=== PATIENT | female | born 2000 | race Caucasian/White ===

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

== ENCOUNTER 2018-01-08 08:52 | Emergency (ER) | payer BC, OTHER ==
[2018-01-08] MEDS ORDERED: GASTROGRAFIN SOLUTION 30ML (Q9963) As Ordered (09:25)
[2018-01-08] MEDS ORDERED: FAMOTIDINE IV BAG 20 MG in APPROPRIATE DILUENT 1 EA IV (09:30)
[2018-01-08] MEDS: PANTOPRAZOLE 40MG INJ (PROTONIX) (C9113) IV (09:43)
[2018-01-08] MEDS: NS 1,000 ML IV (09:43)
[2018-01-08] MEDS: GI COCKTAIL 50ML BTL(HYOSCYAMINE/MAALOX/LIDOCAINE VISCOUS)(1:3:1) PO (09:43)
[2018-01-08] MEDS: ONDANSETRON 4MG/2ML VIAL (J2405) IV (09:44)
[2018-01-08 09:55] LABS: BASO # 0.1 10^3/uL (0.0-0.2); BASO % 0.6 % (0.0-1.0); EOS # 0.6 10^3/uL (0.0-0.50); EOS % 3.6 % (0.0-3.0); HEMATOCRIT 40.7 % (36.0-47.0); HEMOGLOBIN 13.2 g/dl (12.0-15.5); IMMATURE GRANULOCYTE % 0.6 % (0-3.0); LYMPH # 2.3 10^3/uL (1.5-6.5); LYMPH % 12.8 % (24.0-44.0); MEAN CORPUSCULAR HEMOGLOBIN 27.7 pg (27.0-33.0); MEAN CORPUSCULAR HGB CONC 32.4 g/dl (32.0-36.5); MEAN CORPUSCULAR VOLUME 85.3 fl (80.0-96.0); MONO % 5.6 % (0.0-5.0); NEUTROPHILS # 13.5 10^3/uL (1.8-7.7); NEUTROPHILS % 76.8 % (36.0-66.0); PLATELET COUNT, AUTOMATED 452 10^3/uL (150-450); RED BLOOD COUNT 4.77 10^6/uL (4.00-5.40); RED CELL DISTRIBUTION WIDTH 13.2 % (11.5-14.5); WHITE BLOOD COUNT 17.6 10^3/uL (4.0-10.0)
[2018-01-08 09:58] LABS: KETONE, URINE AUTO RFX NEGATIVE (NEGATIVE); MUCUS, URINE RFX SMALL (NEGATIVE); NITRITE, URINE AUTO RFX NEGATIVE (NEGATIVE); RBC, URINE AUTO RFX 58 /HPF (0-3); SQUAM EPITHELIAL CELL UR AURFX 3 /HPF (0-6)
[2018-01-08 09:59] LABS: LEUKOCYTE ESTERASE UR AUTO RFX TRACE (NEGATIVE); WBC, URINE AUTO RFX 11 /HPF (0-3)
[2018-01-08] MEDS: GASTROGRAFIN SOLUTION 30ML PO ×2 (10:02→10:34)
[2018-01-08 10:13] LABS: CONTROL LINE HCG INT CTR LINE PRESENT; HCG, SERUM QUALITATIVE NEGATIVE (NEGATIVE)
[2018-01-08 10:22] LABS: ALBUMIN 3.5 GM/DL (3.2-5.2); ALBUMIN/GLOBULIN RATIO 0.95 (1.00-1.93); ALKALINE PHOSPHATASE 96 U/L (45-117); ALT/SGPT 30 U/L (12-78); AMYLASE 40 U/L (25-115); ANION GAP 8 MEQ/L (8-16); AST/SGOT 25 U/L (7-37); BILIRUBIN,DIRECT < 0.1 MG/DL (0.0-0.2); BILIRUBIN,TOTAL 0.3 MG/DL (0.2-1.0); BLOOD UREA NITROGEN 13 MG/DL (7-18); CALCIUM LEVEL 8.7 MG/DL (8.5-10.1); CARBON DIOXIDE LEVEL 24 MEQ/L (21-32); CHLORIDE LEVEL 111 MEQ/L (98-107); CREATININE FOR GFR 0.77 MG/DL (0.55-1.30); GLUCOSE, FASTING 97 MG/DL (70-100); LIPASE 129 U/L (73-393); POTASSIUM SERUM 4.2 MEQ/L (3.5-5.1); SODIUM LEVEL 143 MEQ/L (136-145); TOTAL PROTEIN 7.2 GM/DL (6.4-8.2)
[2018-01-08] MEDS ORDERED: ISOVUE-370 76% 100ML VIAL (Q9967) As Ordered (11:09)
== END 2018-01-08 12:40 | disposition home or self-care (01) ==
LOC: M ED 08:52
DX: K80.50 Calculus of bile duct without cholangitis or cholecystitis without obstruction (principal); N83.299 Other ovarian cyst, unspecified side; R10.9 Unspecified abdominal pain; R11.2 Nausea with vomiting, unspecified; J45.909 Unspecified asthma, uncomplicated; Z79.899 Other long term (current) drug therapy; Z88.2 Allergy status to sulfonamides
CPT/HCPCS: C9113

== ENCOUNTER → 2018-07-17 | Outpatient (REF) | payer OTHER | LOC: M LAB REF 16:39 | DX: J02.9 Acute pharyngitis, unspecified (principal) ==

== ENCOUNTER 2019-06-12 12:53 | Emergency (ER) | payer OTHER ==
[~2019-06-12] VITALS: Ht 160 cm; Wt 98.1 kg
[~2019-06-12 12:53] MED LIST: CARA1TAB6 PO; COLA100C5 PO; IBUP-1114 PO; MAPA500T2 PO; PROAAER10 INH; PROT1TAB2 PO; ZOFR4TAB14 PO
[2019-06-12 14:04] LABS: BASO # 0.1 10^3/uL (0.0-0.2); BASO % 0.7 % (0.0-1.0); EOS # 0.2 10^3/uL (0.0-0.5); EOS % 2.3 % (0.0-3.0); HEMATOCRIT 43.2 % (36.0-47.0); HEMOGLOBIN 14.1 g/dl (12.0-15.5); LYMPH # 2.5 10^3/uL (1.5-5.0); MEAN CORPUSCULAR HEMOGLOBIN 29.4 pg (27.0-33.0); MEAN CORPUSCULAR HGB CONC 32.6 g/dl (32.0-36.5); MEAN CORPUSCULAR VOLUME 90.2 fl (80.0-96.0); MONO # 0.8 10^3/uL (0.0-0.8); MONO % 7.6 % (0.0-5.0); NEUTROPHILS # 7.1 10^3/uL (1.5-8.5); NEUTROPHILS % 66.1 % (36.0-66.0); PLATELET COUNT, AUTOMATED 320 10^3/uL (150-450); RED BLOOD COUNT 4.79 10^6/uL (4.00-5.40); WHITE BLOOD COUNT 10.7 10^3/uL (4.0-10.0)
[2019-06-12 15:14] LABS: BLOOD UREA NITROGEN 10 MG/DL (7-18); CALCIUM LEVEL 8.8 MG/DL (8.5-10.1); CARBON DIOXIDE LEVEL 26 MEQ/L (21-32); CHLORIDE LEVEL 107 MEQ/L (98-107); CREATININE FOR GFR 0.62 MG/DL (0.55-1.30); GLUCOSE, FASTING 79 MG/DL (70-100); HCG, SERUM QUANTITATIVE 4098 MIU/ML; SODIUM LEVEL 140 MEQ/L (136-145)
--- NOTE | 2019-06-12 17:11 | REP ---
FIRST TRIMESTER ULTRASOUND: Real-time sonographic evaluation of the pelvis performed utilizing transabdominal and endovaginal technique. Uterine length is 10.3 cm. A gestational sac is seen in the endometrial canal containing a pole with a crown rump length of 12 mm. This would correspond to an estimated gestational age of 7 weeks 3 days. However, no heart motion is detected. Findings are compatible with intrauterine demise. There is no subchorionic hemorrhage. A cyst of the right ovary measures 4.1 x 2.3 x 3.1 cm, anechoic. This may represent a corpus luteum. No torsion is seen with duplex Doppler evaluation bilaterally. Electronically Signed by Honorio Morgan MD 06/15/2019 04:29 P
[2019-06-12 19:39] VITALS: BP 140/64
== END 2019-06-12 19:46 | disposition home or self-care (01) ==
LOC: M ED 12:53
DX: O03.4 Incomplete spontaneous abortion without complication (principal); Z3A.01 Less than 8 weeks gestation of pregnancy; Z88.2 Allergy status to sulfonamides; Z79.899 Other long term (current) drug therapy

== ENCOUNTER → 2019-06-18 | Outpatient (CLI) | payer OTHER | LOC: M SMT 10:21 | PROVIDERS: ATTEND Advanced Practice Midwife | DX: O03.9 Complete or unspecified spontaneous abortion without complication (principal) ==

== ENCOUNTER → 2019-06-23 | Outpatient (CLI) | payer OTHER | LOC: M SMT 10:29 | PROVIDERS: ATTEND Advanced Practice Midwife | DX: O03.9 Complete or unspecified spontaneous abortion without complication (principal) ==

== ENCOUNTER → 2020-05-04 | Outpatient (CLI) | payer BC ==
--- NOTE | 2020-06-14 09:31 | REP ---
OBSTETRIC SONOGRAPHY HISTORY: Supervision of for anatomy. FINDINGS: Scanning through the gravid uterus demonstrates a single living intrauterine gestation in a predominantly breech lie. Placenta is anterior grade 1 without evidence of previa or abruption. There is a right-sided ovarian cyst measuring 3.4 x 3.4 x 2.1 cm consistent with corpus luteum cyst. Exam quality was inhibited by maternal body habitus and early gestational age. heart rate recorded at 149 beats per minute. Amniotic fluid is subjectively normal. The following anatomic structures are identified and felt to be unremarkable: Cisterna magna, cavum septum, thalami, spine, left-sided stomach, urinary bladder, three-vessel cord, abdominal wall cord insertion, upper and lower extremities. The facial profile is seen, but nose and lips are not clearly visualized due to position. Kidneys were not well seen. BIOMETRY CHART: BPD 34 mm 16 weeks 4 days Head Circumference 145 mm 17 weeks 6 days Abdominal Circumference 130 mm 18 weeks 4 days Femur Length 27 mm 18 weeks 2 days Humeral Length 28 mm 19 weeks 0 days Estimated Weight 231 g 28th Percentile IMPRESSION: Single living intrauterine gestation at 17 weeks 6 days by todays composite criteria. Estimated date of delivery (MATTY) by todays sonography 10/06/2020. Scan quality inhibited by maternal body habitus and early gestational age. anatomic survey is not complete. MTDD
== END ==
LOC: M WHC 13:02
PROVIDERS: ATTEND Advanced Practice Midwife
DX: Z34.82 Encounter for supervision of other normal pregnancy, second trimester (principal); Z3A.17 17 weeks gestation of pregnancy

== ENCOUNTER → 2020-07-06 | Outpatient (CLI) | payer BC ==
--- NOTE | 2020-07-07 13:17 | REP ---
INDICATION: F/U ANATOMY COMPARISON: 05/04/2020 TECHNIQUE: Transabdominal obstetrical ultrasound with color Doppler evaluation. FINDINGS: Examination demonstrates a single live intrauterine in breech presentation. motion is identified by technologist. Placenta is noted anterior and grade 1 without evidence for placenta previa or abruption. Amniotic fluid volume is normal. Cervix measures 3.9 cm in length and appears closed.. Gestational age by current measurements 27 weeks 0 days with MATTY 10/05/2020. FHR equals 152 beats per minute. Estimated weight 1086 grams (35thpercentile). Anatomical assessment demonstrates normal structures including facial features, four-chamber heart/ventricular outflow tracts, kidneys, and spine. IMPRESSION: Single live intrauterine in breech presentation demonstrating appropriate estimated weight and growth. In conjunction with prior examination anatomical assessment is complete and normal. <Electronically signed by Jona Robert > 07/07/20 [id number]
== END ==
LOC: M WHC 13:31
PROVIDERS: ATTEND Advanced Practice Midwife
DX: O99.212 Obesity complicating pregnancy, second trimester (principal)

== ENCOUNTER → 2020-07-12 | Outpatient (REF) | payer OTHER ==
[2020-07-12 14:05] LABS: HEMATOCRIT 39.5 % (36.0-47.0); HEMOGLOBIN 12.5 g/dl (12.0-15.5); MEAN CORPUSCULAR HEMOGLOBIN 29.3 pg (27.0-33.0); MEAN CORPUSCULAR HGB CONC 31.6 g/dl (32.0-36.5); MEAN CORPUSCULAR VOLUME 92.5 fl (80.0-96.0); PLATELET COUNT, AUTOMATED 291 10^3/uL (150-450); RED BLOOD COUNT 4.27 10^6/uL (4.00-5.40); WHITE BLOOD COUNT 9.9 10^3/uL (4.0-10.0)
== END ==
LOC: M PLALAB 11:28
PROVIDERS: ATTEND Advanced Practice Midwife
DX: O99.212 Obesity complicating pregnancy, second trimester (principal)

== ENCOUNTER → 2020-09-05 | Outpatient (REF) | payer OTHER | LOC: M LAB REF 13:14 | PROVIDERS: ATTEND Obstetrics & Gynecology | DX: Z36.89 Encounter for other specified antenatal screening (principal); Z3A.36 36 weeks gestation of pregnancy ==

== ENCOUNTER 2020-10-04 07:16 | Inpatient (IN) | payer BC, OTHER ==
[~2020-10-04] VITALS: Ht 157.5 cm; Wt 120.9 kg
[2020-10-04] VITALS (23 sets, daily range): BP systolic 95–130; BP diastolic 43–74
--- OUTSIDE RECORDS SUMMARY | 2020-10-04 07:30 | CCD ---
Author Author [facility] Organization [facility] Address Unknown Phone Unavailable Care Team Providers Care Agriculture Department Chair Name Role Phone Debora Trujillo Unavailable PROBLEMS Type Condition ICD9-CM Code [id number] Code Onset Dates Condition S tatus SNOMED Code Notes Problem Obesity, morbid, BMI 40.0-49.9 E66.01 Active 2 58934897 Problem Encounter for control pills maintenance Z30. 41 Active 887939290 Problem Environmental allergies Z91.09 Active 04996165 7 Problem Obesity (BMI 35.0-39.9 without comorbidity) E66.9 Active 350195096 Problem Encounter for management and injection of depo-Provera Z30.42 Active 346708536 Problem Obesity complicating in third trimester O99.21 3 Active Problem control Z30.9 Active 63306020 Problem Asthma J45.909 Active 229485399 Problem Supervision of other normal Z34.80 Ac tive 656582655 Problem Obesity complicating in first trimester O99.21 1 Active Problem Obesity complicating in second trimester O99.212 Active 576305544494 ALLERGIES Allergen (clinical drug ingredient) Drug/Non Drug Allergy do cumented on EMR Reaction Allergy Type Onset Date Status Sulfa (for allergy use only) Hives Drug Allergy Active ENCOUNTERS from 1998 to 2020-07-26 Encounter Location Date Provider Diagnosis [facility] [address] [place] [address] Mar, Debora Trujillo Obesity complicating , first trimester O99.211 ; Morbid (severe) obesity due to excess calories E66.01 ; Diseases of the respiratory system complicating , first trimester O99.511 ; Unspecified asthma, uncomplicated J45.909 and 13 weeks gestation of Z3A.13 IMMUNIZATIONS Vaccine Route Administration Date Status HPV9 0.5mL (Gardasil 9) IM Intramuscular December 01, 2015 Adminis tered Gardasil IM Intramuscular May 24, 2015 Administered TDAP 0.5mL (Boostrix) IM Intramuscular Jul 21, 2020 Administe red Influenza (6mo & up) Fluzone IM Intramuscular Jun 02, 2014 Ad ministered Influenza (6mo & up) Fluzone IM Jun 24, 2013 Adm inistered SOCIAL HISTORY Sex Assigned At : Social History Observation Description Sex Assigned At Unknown Language: Question Answer Notes Languages spoken: Sami Cheondoism: Question Answer Notes Cheondoism 33 None REASON FOR REFERRAL No Information VITAL SIGNS Weight 222 lbs Mar, Height 62.75 in Mar, BMI 39.64 kg/m2 Mar, Blood pressure systolic 124 mm Hg Mar, Blood pressure diastolic 68 mm Hg Mar, MEDICATIONS Medication SIG (Take, Route, Frequency, Duration) Start Date En d Date Status Albuterol Sulfate (2.5 MG/3ML) 0.083% 3 ml Inhalation qid prn fo r sob/wheeze Not-Taking Zofran 4 MG 1 tablet Orally every 6 hours as needed for nausea Jun, Active Albuterol Sulfate HFA 108 (90 Base) MCG/ACT 1-2 puffs Inhalation qid prn for sob/wheeze for 30 day(s) Not-Taking Vitamins 28-0.8 MG 1 tablet Orally Once a day Active PROCEDURES No Information RESULTS No Results REASON FOR VISIT 4WK PN MEDICAL (GENERAL) HISTORY Type Description Date Medical History Asthma Hospitalization History Asthma As infant Hospitalization History childbirth Goals Section No Information Health Concerns No Information MEDICAL EQUIPMENT No Information MENTAL STATUS No Information FUNCTIONAL STATUS No Information ASSESSMENTS Encounter Date Diagnosis Notes Mar, Diseases of the respiratory system complicating , first trimester (ICD-10 - O99.511) Mar, Morbid (severe) obesity due to excess ca lories (ICD-10 - E66.01) Mar, 13 weeks gestation of (ICD-10 - Z3A.13) Mar, Unspecified asthma, uncomplicated (ICD-1 0 - J45.909) Mar, Obesity complicating , first tr imester (ICD-10 - O99.211) PLAN OF TREATMENT Next Appt Details 4 Weeks Reason: Provider Name:Debora Trujillo, 2020 0 2:40:00 PM, [address] [place], [address], Insurance Providers Payer Name Payer Address Payer Phone Insured Name Patient Relati onship to Insured Coverage Start Date Coverage End Date [facility] [address] [facility] [id number] [place] [id number]
--- OUTSIDE RECORDS SUMMARY | 2020-10-04 07:30 | CCD ---
Author Author [facility] Organization [facility] Address Unknown Phone Unavailable Care Team Providers Care Fryline Attendant Name Role Phone Grant Coreas Unavailable PROBLEMS Type Condition ICD9-CM Code CJX11-IP Code Onset Dates Condition S tatus SNOMED Code Notes Problem Asthma J45.909 Active 333946467 Problem Morbid (severe) obesity due to excess calories E66 .01 Active 388769594 Problem Obesity, morbid, BMI 40.0-49.9 E66.01 Active 2 13294974 Problem Encounter for control pills maintenance Z30. 41 Active 673091455 Problem Environmental allergies Z91.09 Active 61067803 7 ALLERGIES Allergen (clinical drug ingredient) Drug/Non Drug Allergy do cumented on EMR Reaction Allergy Type Onset Date Status Sulfa (for allergy use only) Hives Drug Allergy Active ENCOUNTERS from 1998 to 2020-08-31 Encounter Location Date Provider Diagnosis [facility] [address] [place] [address] Aug, Grant Coreas IMMUNIZATIONS Vaccine Route Administration Date Status HPV9 0.5mL (Gardasil 9) IM Intramuscular December 01, 2015 Adminis tered Gardasil IM Intramuscular May 24, 2015 Administered TDAP 0.5mL (Boostrix) IM Intramuscular Jul 21, 2020 Administe red Influenza (6mo & up) Fluzone IM Intramuscular 2020 Ad ministered Influenza (6mo & up) Fluzone IM Intramuscular Jun 02, 2014 Ad ministered Influenza (6mo & up) Fluzone IM Jun 24, 2013 Adm inistered SOCIAL HISTORY Sex Assigned At : Social History Observation Description Sex Assigned At Unknown Language: Question Answer Notes Languages spoken: Syriac Hoahaoism: Question Answer Notes Hoahaoism 33 None REASON FOR REFERRAL No Information VITAL SIGNS No information MEDICATIONS Medication SIG (Take, Route, Frequency, Duration) Notes Start Da te End Date Status Albuterol Sulfate (2.5 MG/3ML) 0.083% 3 ml Inhalation qid prn fo r sob/wheeze Not-Taking Zofran 4 MG 1 tablet Orally every 6 hours as needed for nausea Jun, Active Albuterol Sulfate HFA 108 (90 Base) MCG/ACT 1-2 puffs Inhalation qid prn for sob/wheeze for 30 day(s) Not-Wil ing Vitamins 28-0.8 MG 1 tablet Orally Once a day Active PROCEDURES No Information RESULTS No Results REASON FOR VISIT blurry vision MEDICAL (GENERAL) HISTORY Type Description Date Medical History Asthma Hospitalization History Asthma As infant Hospitalization History childbirth Goals Section No Information Health Concerns No Information MEDICAL EQUIPMENT No Information MENTAL STATUS No Information FUNCTIONAL STATUS No Information ASSESSMENTS No Information PLAN OF TREATMENT Next Appt Details Provider Name:Grant Coreas, 09:20:00 AM, [address] [place], [address], Insurance Providers Payer Name Payer Address Payer Phone Insured Name Patient Relati onship to Insured Coverage Start Date Coverage End Date [facility] [address] [facility] [id number] [place] [id number]
--- OUTSIDE RECORDS SUMMARY | 2020-10-04 07:30 | CCD ---
Author Author [facility] Organization [facility] Address Unknown Phone Unavailable Care Team Providers Care Sales Administration Manager Name Role Phone Margot Ramsay Unavailable PROBLEMS Type Condition ICD9-CM Code XEC69-MM Code Onset Dates Condition S tatus SNOMED Code Notes Problem Obesity, morbid, BMI 40.0-49.9 E66.01 Active 2 10683062 Problem Encounter for control pills maintenance Z30. 41 Active 132327762 Problem Environmental allergies Z91.09 Active 17090856 7 Problem Obesity (BMI 35.0-39.9 without comorbidity) E66.9 Active 245972164 Problem Encounter for management and injection of depo-Provera Z30.42 Active 201871957 Problem Obesity complicating in third trimester O99.21 3 Active Problem control Z30.9 Active 91472051 Problem Asthma J45.909 Active 319434126 Problem Supervision of other normal Z34.80 Ac tive 378985444 Problem Obesity complicating in first trimester O99.21 1 Active Problem Obesity complicating in second trimester O99.212 Active 882274455082 ALLERGIES Allergen (clinical drug ingredient) Drug/Non Drug Allergy do cumented on EMR Reaction Allergy Type Onset Date Status Sulfa (for allergy use only) Hives Drug Allergy Active ENCOUNTERS from 1998 to 2020-08-04 Encounter Location Date Provider Diagnosis [facility] [address] [place] [phone] Jul, Margot Ramsay Encounter for imm unization Z23 ; Obesity complicating in third trimester O99.213 and 29 weeks gestation of Z3A.29 IMMUNIZATIONS Vaccine Route Administration Date Status HPV9 [...] Unknown Language: Question Answer Notes Languages spoken: Faroese Hindu: Question Answer Notes Hindu 33 None REASON FOR REFERRAL No Information VITAL SIGNS Weight 223.8 lbs Jul, Weight-kg 101.51 kg Jul, Height 62.75 in Jul, BMI 39.961 kg/m2 Jul, Blood pressure systolic 112 mm Hg Jul, Blood pressure diastolic 58 mm Hg Jul, MEDICATIONS Medication SIG (Take, Route, Frequency, Duration) [...] tablet Orally Once a day Active PROCEDURES Procedure Date Ordered Result Body Site Immunization: Boostrix 0.5mL IM (TDAP) 2020-07-21 N/A RESULTS No Results REASON FOR VISIT 4 WEEK PN MEDICAL (GENERAL) HISTORY Type Description Date Medical History Asthma Hospitalization History Asthma As infant Hospitalization History childbirth Goals Section No Information Health Concerns No Information MEDICAL EQUIPMENT No Information MENTAL STATUS No Information FUNCTIONAL STATUS No Information ASSESSMENTS Encounter Date Diagnosis Assessment Notes Treatment Notes Treatm ent Clinical Notes Jul, Encounter for immunization (ICD-10 - Z23) Jul, Obesity complicating pregnan cy in third trimester (ICD-10 - O99.213) Jul, 29 weeks gestation of (ICD-10 - Z3A.29 ) PLAN OF TREATMENT Next Appt Details 2 Weeks Reason:return ob Provider Name:Debora Trujillo, 2020 0 2:40:00 PM, [address] [place], [address], Follow Up:2 Weeksreturn ob Insurance Providers Payer Name Payer Address Payer Phone Insured Name Patient Relati onship to Insured Coverage Start Date Coverage End Date [facility] [address] [facility] [id number] [place] [id number]
--- OUTSIDE RECORDS SUMMARY | 2020-10-04 07:30 | CCD ---
Author Author [facility] Organization [facility] Address Unknown Phone Unavailable Care Team Providers Care Antenna Specialist Name Role Phone Felipa Webb Unavailable PROBLEMS Type Condition ICD9-CM Code GFA00-IU Code Onset Dates Condition S tatus SNOMED Code Notes Problem Encounter for management and injection of depo-Provera Z30.42 Active 797552086 Problem Obesity, morbid, BMI 40.0-49.9 E66.01 Active 2 85965847 Problem Encounter for control pills maintenance Z30. 41 Active 120791697 Problem Obesity complicating in second trimester O99.212 Active 668926612255 Problem control Z30.9 Active 46411959 Problem Obesity (BMI 35.0-39.9 without comorbidity) E66.9 Active 170814881 Problem Environmental allergies Z91.09 Active 08856655 7 Problem Asthma J45.909 Active 741031063 Problem Supervision of other normal Z34.80 Ac tive 185782920 Problem Obesity complicating in first trimester O99.21 1 Active ALLERGIES Allergen (clinical drug ingredient) Drug/Non Drug Allergy do cumented on EMR Reaction Allergy Type Onset Date Status Sulfa (for allergy use only) Hives Drug Allergy Active ENCOUNTERS from 1998 to 2020-07-20 Encounter Location Date Provider Diagnosis [facility] [address] [place] [address] 08 Jun, 2020 Felipa Webb Obesity complicating in second trimester O99.212 ; 25 weeks gestation of Z3A.25 and Obesity (BMI 35.0-39.9 without comorbidity) E66.9 IMMUNIZATIONS Vaccine Route Administration Date Status HPV9 0.5mL (Gardasil 9) IM Intramuscular December 01, 2015 Adminis tered Gardasil IM Intramuscular May 24, 2015 Administered Influenza (6mo & up) Fluzone IM Intramuscular Jun 02, 2014 Ad ministered Influenza (6mo & up) Fluzone IM Jun 24, 2013 Adm inistered SOCIAL HISTORY Sex Assigned At : Social History Observation Description Sex Assigned At Unknown Language: Question Answer Notes Languages spoken: Austrian Roman Catholic: Question Answer Notes Roman Catholic 33 None REASON FOR REFERRAL No Information VITAL SIGNS Weight 219 lbs Jun, Height 62.75 in Jun, BMI 39.104 kg/m2 Jun, Blood pressure systolic 122 mm Hg Jun, Blood pressure diastolic 72 mm Hg Jun, MEDICATIONS Medication SIG (Take, Route, Frequency, Duration) Start Date En d Date Status Albuterol Sulfate (2.5 MG/3ML) 0.083% 3 ml Inhalation qid prn fo r sob/wheeze Not-Taking Albuterol Sulfate HFA 108 (90 Base) MCG/ACT 1-2 puffs Inhalation qid prn for sob/wheeze for 30 day(s) Not-Taking Zofran 4 MG 1 tablet Orally every 6 hours as needed for nausea Jun, Active Vitamins 28-0.8 MG 1 tablet Orally Once a day Active PROCEDURES No Information RESULTS Component Value Reference Range [facility] OBS FOLLOW UP OR REPEAT Reviewed date:07/10/2020 14:05:29 Interpretation: Performing Lab:[facility] [address] ,[place] [address] Type and Screen (D Rh Antibody Screen) Reviewed date:07/12/2020 18:32:16 Interpretation: Performing Lab:[facility] LABORATORY [address] [place] [address] , ,[place] [address] BLOOD TYPE O POSITIVE AB SCREEN (INDIRECT ZENAIDA)VIS NEGATIVE CBC - Complete Blood Count Reviewed date:07/12/2020 18:32:10 Interpretation: Performing Lab:[facility] LABORATORY [address] [place] [address] , ,[place] [address] WHITE BLOOD COUNT 9.9 4.0-10.0 RED BLOOD COUNT 4.27 4.00-5.40 HEMOGLOBIN 12.5 12.0-15.5 HEMATOCRIT 39.5 36.0-47.0 MEAN CORPUSCULAR VOLUME 92.5 80.0-96.0 MEAN CORPUSCULAR HEMOGLOBIN 29.3 27.0-33.0 MEAN CORPUSCULAR HGB CONC 31.6 32.0-36.5 RED CELL DISTRIBUTION WIDTH 12.6 11.5-14.5 PLATELET COUNT, AUTOMATED 291 150-450 Glucose Challenge Test 1 Hour Reviewed date:07/12/2020 18:32:38 Interpretation: Performing Lab:[facility], [facility] LAB[facility]ORY [address] [facility] [id number] , ,[place] [address] GLUCOSE CHALLENGE TEST 1 HOUR 76 LESS THAN 140 REASON FOR VISIT 4 WK PN MEDICAL (GENERAL) HISTORY Type Description Date Medical History Asthma Hospitalization History Asthma As Hospitalization History childbirth Goals Section No Information Health Concerns No Information MEDICAL EQUIPMENT No Information MENTAL STATUS No Information FUNCTIONAL STATUS No Information ASSESSMENTS Encounter Date Diagnosis Notes Jun, Obesity (BMI 35.0-39.9 without comorbidi ty) (ICD-10 - E66.9) Jun, 25 weeks gestation of (ICD-10 - Z3A.25) Jun, Obesity complicating pregnan cy in second trimester (ICD-10 - O99.212) PLAN OF TREATMENT Medication Medication Name Sig Start Date Stop Date Zofran 4 MG 1 tablet Orally every 6 hours as needed for naus ea Jun, Next Appt Details 4 Weeks Reason: Provider Name:Margot Leon, 2020-07-21 11:00:00 AM, [address] [place], [address], Follow Up:4 Weeksprenatal Insurance Providers Payer Name Payer Address Payer Phone Insured Name Patient Relati onship to Insured Coverage Start Date Coverage End Date [facility] [address] [facility] [id number] [place] [id number]
--- OUTSIDE RECORDS SUMMARY | 2020-10-04 07:30 | CCD ---
Author Author [facility] Organization [facility] Address Unknown Phone Unavailable Care Team Providers Care Chestnut Tanner Name Role Phone Grant Coreas Unavailable PROBLEMS Type Condition ICD9-CM Code QPH27-MR Code Onset Dates Condition S tatus SNOMED Code Notes Problem Asthma J45.909 Active 243054381 Problem Morbid (severe) obesity due to excess calories E66 .01 Active 680409140 Problem Obesity, morbid, BMI 40.0-49.9 E66.01 Active 2 55971938 Problem Encounter for control pills maintenance Z30. 41 Active 875337293 Problem Environmental allergies Z91.09 Active 94157844 7 ALLERGIES Allergen (clinical drug ingredient) Drug/Non Drug Allergy do cumented on EMR Reaction Allergy Type Onset Date Status Sulfa (for allergy use only) Hives Drug Allergy Active ENCOUNTERS from 1998 to 2020-08-31 Encounter Location Date Provider Diagnosis [facility] [address] [place] [id number] Aug, Grant Coreas related co nditions, unspecified, unspecified trimester O26.90 IMMUNIZATIONS Vaccine Route Administration Date Status HPV9 [...] Unknown Language: Question Answer Notes Languages spoken: Cymro Islam: Question Answer Notes Islam 33 None REASON FOR REFERRAL No Information [...] Information RESULTS No Results REASON FOR VISIT BP CHECK MEDICAL (GENERAL) HISTORY Type Description Date Medical History Asthma Hospitalization History Asthma As Hospitalization History childbirth Goals Section No Information Health Concerns No Information MEDICAL EQUIPMENT No Information MENTAL STATUS No Information FUNCTIONAL STATUS No Information ASSESSMENTS Encounter Date Diagnosis Assessment Notes Treatment Notes Treatm ent Clinical Notes Aug, related conditions , unspecified, unspecified trimester (ICD-10 - O26.90) PLAN OF TREATMENT Next Appt Details Provider Name:Grant Coreas, 09:20:00 AM, [address] [place], [address], Insurance Providers Payer Name Payer Address Payer Phone Insured Name Patient Relati onship to Insured Coverage Start Date Coverage End Date [facility] [address] [facility] [id number] [place] [id number]
--- OUTSIDE RECORDS SUMMARY | 2020-10-04 07:30 | CCD ---
Author Author [facility] Organization [facility] Address Unknown Phone Unavailable Care Team Providers Care Appliances Sample Maker Name Role Phone Grant Coreas Unavailable PROBLEMS Type Condition ICD9-CM Code XIQ45-NR Code Onset Dates Condition S tatus SNOMED Code Notes Problem Morbid (severe) obesity due to excess calories E66 .01 Active 942937316 Problem Obesity during third trimester, antepartum O99.213 Active 814694658 Problem Obesity, morbid, BMI 40.0-49.9 E66.01 Active 2 53695440 Problem Encounter for control pills maintenance Z30. 41 Active 991889481 Problem Environmental allergies Z91.09 Active 78151043 7 Problem Asthma J45.909 Active 224109570 ALLERGIES Allergen (clinical drug ingredient) Drug/Non Drug Allergy do cumented on EMR Reaction Allergy Type Onset Date Status Sulfa (for allergy use only) Hives Drug Allergy Active ENCOUNTERS from 1998 to 2020-09-07 Encounter Location Date Provider Diagnosis [facility] [address] [place] [phone] Aug, Grant Coreas Obesity during third trimester, antepartum O99.213 ; Body mass index of 60 or higher E66.01 and 36 weeks gestation of Z3A.36 IMMUNIZATIONS Vaccine Route Administration Date Status HPV9 [...] Unknown Language: Question Answer Notes Languages spoken: Vietnamese Latter-Day: Question Answer Notes Latter-Day 33 None REASON FOR REFERRAL No Information VITAL SIGNS Weight 226 lbs Aug, Height 62.75 in Aug, BMI 40.35 kg/m2 Aug, Blood pressure systolic 118 mm Hg Aug, Blood pressure diastolic 58 mm Hg Aug, MEDICATIONS Medication SIG (Take, Route, Frequency, Duration) Notes Start Da te End Date Status Zofran 4 MG 1 tablet Orally every 6 hours as needed for nausea Jun, Active Albuterol Sulfate (2.5 MG/3ML) 0.083% 3 ml Inhalation qid prn fo r sob/wheeze Not-Taking Vitamins 28-0.8 MG 1 tablet Orally Once a day Active Albuterol Sulfate HFA 108 (90 Base) MCG/ACT 1-2 puffs Inhalation qid prn for sob/wheeze for 30 day(s) Not-Wil ing PROCEDURES No Information RESULTS No Results REASON FOR VISIT 2 WK PN MEDICAL (GENERAL) HISTORY Type Description Date Medical History Asthma Hospitalization History Asthma As infant Hospitalization History childbirth Goals Section No Information Health Concerns No Information MEDICAL EQUIPMENT No Information MENTAL STATUS No Information FUNCTIONAL STATUS No Information ASSESSMENTS Encounter Date Diagnosis Assessment Notes Treatment Notes Treatm ent Clinical Notes Aug, Obesity during third trimester, antepartum (ICD- 10 - O99.213) Aug, Body mass index of 60 or higher (ICD-10 - E66.01 ) Aug, 36 weeks gestation of (ICD-10 - Z3A.36 ) PLAN OF TREATMENT Treatment Notes Test Name Order Date GROUP B STREP CULTURE 2020-09-07 Next Appt Details 1 Week Reason:follow-up Provider Name:Margot Ramsay, 2020-09-22 01:40:00 PM, [address] [place], [phone], Follow Up:1 Weekfollow-up Insurance Providers Payer Name Payer Address Payer Phone Insured Name Patient Relati onship to Insured Coverage Start Date Coverage End Date [facility] [address] [facility] [id number] [place] [id number]
--- OUTSIDE RECORDS SUMMARY | 2020-10-04 07:30 | CCD ---
Author Author [facility] Organization [facility] Address Unknown Phone Unavailable Care Team Providers Care Continuous Pillowcase Cutter Name Role Phone Marisol Saundersina SEASONER Unavailable Unavailable Saunders, Xin SEASONER Unavailable Unavailable Saunders, Xin SEASONER Unavailable Unavailable Saunders, Xin SEASONER Unavailable Unavailable Saunders, Xin SEASONER Unavailable Unavailable Saunders, Xin SEASONER Unavailable Unavailable Saunders, Xin SEASONER Unavailable Unavailable Saunders, Xin SEASONER Unavailable Unavailable Saunders, Xin SEASONER Unavailable Unavailable Saunders, Xin SEASONER Unavailable Unavailable Saunders, Xin SEASONER Unavailable Unavailable LETTIERE, Rishabh SHIELDS PA Unavailable Unavailable LETTIERE, Rishabh SARGENT Unavailable Unavailable LETTIERE, Rishabh SARGENT Unavailable Unavailable LETTIERE, Rishabh SARGENT Unavailable Unavailable LETTIERE, Rishabh SARGENT Unavailable Unavailable LETTIERE, Rishabh SHIELDS PA Unavailable Unavailable LETTIERE, Rishabh SHIELDS PA Unavailable Unavailable LETTIERE, Rishabh SHIELDS PA Unavailable Unavailable LETTIERE, Rishabh SHIELDS PA Unavailable Unavailable LETTIERE, Rishabh SHIELDS PA Unavailable Unavailable LETTIERE, Rishabh SHIELDS PA Unavailable Unavailable LETTIERE, Rishabh SHIELDS PA Unavailable Unavailable LETTIERE, Rishabh SHIELDS PA Unavailable Unavailable LETTIERE, Rishabh SHIELDS PA Unavailable Unavailable LETTIERE, Rishabh SHIELDS PA Unavailable Unavailable LETTIERE, Rishabh SHIELDS PA Unavailable Unavailable LETTIERE, Rishabh SARGENT Unavailable Unavailable LETTIERE, A ALYSON PA Unavailable Unavailable LETTIERE, A ALYSON PA Unavailable Unavailable LETTIERE, A ALYSON PA Unavailable Unavailable LETTIERE, A ALYSON PA Unavailable Unavailable LETTIERE, A ALYSON PA Unavailable Unavailable LETTIERE, A ALYSON PA Unavailable Unavailable LETTIERE, A ALYSON PA Unavailable Unavailable LETTIERE, A ALYSON PA Unavailable Unavailable LETTIERE, A ALYSON PA Unavailable Unavailable LETTIERE, A ALYSON PA Unavailable Unavailable LETTIERE, A ALYSON PA Unavailable Unavailable LETTIERE, A ALYSON PA Unavailable Unavailable Re-disclosure Warning The records that you are about to access may contain information from federally-assisted alcohol or drug abuse programs. If such information is present, then the following federally mandated warning applies: This information has been disclosed to you from records protected by federal confidentiality rules (42 CFR part 2). The federal rules prohibit you from making any further disclosure of this information unless further disclosure is expressly permitted by the written consent of the person to whom it pertains or as otherwise permitted by 42 CFR part 2. A general authorization for the release of medical or other information is NOT sufficient for this purpose. The Federal rules restrict any use of the information to criminally investigate or prosecute any alcohol or drug abuse patient.The records that you are about to access may contain highly sensitive health information, the redisclosure of which is protected by Article 27-F of the [facility] Public Health law. If you continue you may have access to information: Regarding HIV / AIDS; Provided by facilities licensed or operated by the [facility] Office of Mental Health; or Provided by the [facility] Office for People With Developmental Disabilities. If such information is present, then the following [facility] mandated warning applies: This information has been disclosed to you from confidential records which are protected by state law. State law prohibits you from making any further disclosure of this information without the specific written consent of the person to whom it pertains, or as otherwise permitted by law. Any unauthorized further disclosure in violation of state law may result in a fine or long term sentence or both. A general authorization for the release of medical or other information is NOT sufficient authorization for further disc losure. Family History Family Member Name Family Member Gender Family Member Status Date o f Status Description Data Source(s) Unknown Unknown Problem MEDENT ([facility]) Unknown Unknown Problem MEDENT ([facility]) Unknown Unknown Problem [facility] ([facility] Encounters Encounter Providers Location Date Indications Data Source(s ) ( ESTOB) enter Est OB [address] [place] [address] 09/22/2020 12:00:00 AM EST eCW1 ([facility]) ( ESTOB) [facility] Est OB [address] [place] [address] 09/05/2020 12:00:00 AM EST eCW1 ([facility]) Unknown [address] [facility] [address] 08/30/2020 12:00:00 AM EST eCW1 ([facility]) ( [place]) [facility] Nurse Visit [address] [place] [address] 08/30/2020 12:00:00 AM EST eCW1 ([facility]) ( ESTOB) [facility] [address] [place] [address] 08/22/2020 12:00:00 AM EST eCW1 ([facility]) ( ESTOB) [facility] Est OB [address] [place] [address] 2020 12:00:00 AM EST eCW1 ([facility]) ( ESTOB) [facility] Est OB [address] [place] [address] 07/21/2020 12:00:00 AM EST eCW1 ([facility]) ( ESTOB) [facility] Est OB [address] [place] [address] 06/23/2020 12:00:00 AM EDT eCW1 ([facility]) ( ESTOB) enter Est OB [address] [place] [address] 04/01/2020 12:00:00 AM EDT eCW1 ([facility]) ( ESTOB) enter Est OB [address] [place] [address] 03/03/2020 12:00:00 AM EDT eCW1 ([facility]) Outpatient Attender: Xin underwood 12/23/2019 02:35:00 PM EDT MEDENT ([facility]) Outpatient Attender: ALYSON levin 2019 12:45:00 PM EST MEDENT ([facility]) Immunizations Vaccine Date Status Description Data Source(s) New in 2011. IIV4 2020 03:35:00 PM EST completed eCW1 ([facility]) New in 2011. IIV4 2020 03:35:00 PM EST completed eCW1 ([facility]) New in 2011. IIV4 2020 03:35:00 PM EST completed eCW1 ([facility]) New in 2011. IIV4 2020 03:35:00 PM EST completed eCW1 ([facility]) New in 2011. IIV4 2020 03:35:00 PM EST completed eCW1 ([facility]) New in 2011. IIV4 2020 03:35:00 PM EST completed eCW1 ([facility]) Tdap 07/21/2020 11:34:00 AM EST completed e CW1 ([facility]) Tdap 07/21/2020 11:34:00 AM EST completed e CW1 ([facility]) Tdap 07/21/2020 11:34:00 AM EST completed e CW1 ([facility]) Tdap 07/21/2020 11:34:00 AM EST completed e CW1 ([facility]) Tdap 07/21/2020 11:34:00 AM EST completed e CW1 ([facility]) Tdap 07/21/2020 11:34:00 AM EST completed e CW1 ([facility]) Tdap 07/21/2020 11:34:00 AM EST completed e CW1 ([facility]) Tdap 07/21/2020 11:34:00 AM EST completed e CW1 ([facility]) Medications Medication Brand Name Start Date Product Form Dose Route Admi nistrative Instructions Pharmacy Instructions Status Indications Reaction Description Data Source(s) Ondansetron 4 MG Oral Tablet [Zofran] Zofran 4 MG Zofran 4 M G 06/23/2020 12:00:00 AM EDT 1.0 {tablet} active Zo cristal 4 MG eCW1 ([facility]) Ondansetron 4 MG Oral Tablet [Zofran] Zofran 4 MG Zofran 4 M G 06/23/2020 12:00:00 AM EDT 1.0 {tablet} active Zo cristal 4 MG eCW1 ([facility]) Ondansetron 4 MG Oral Tablet [Zofran] Zofran 4 MG Zofran 4 M G 06/23/2020 12:00:00 AM EDT 1.0 {tablet} active Zo cristal 4 MG eCW1 ([facility]) Ondansetron 4 MG Oral Tablet [Zofran] Zofran 4 MG Zofran 4 M G 06/23/2020 12:00:00 AM EDT 1.0 {tablet} active Zo cristal 4 MG eCW1 ([facility]) Ondansetron 4 MG Oral Tablet [Zofran] Zofran 4 MG Zofran 4 M G 06/23/2020 12:00:00 AM EDT 1.0 {tablet} active Zo cristal 4 MG eCW1 ([facility]) Ondansetron 4 MG Oral Tablet [Zofran] Zofran 4 MG Zofran 4 M G 06/23/2020 12:00:00 AM EDT 1.0 {tablet} active Zo cristal 4 MG eCW1 ([facility]) Ondansetron 4 MG Oral Tablet [Zofran] Zofran 4 MG Zofran 4 M G 06/23/2020 12:00:00 AM EDT 1.0 {tablet} active Zo cristal 4 MG eCW1 ([facility]) Ondansetron 4 MG Oral Tablet [Zofran] Zofran 4 MG Zofran 4 M G 06/23/2020 12:00:00 AM EDT 1.0 {tablet} active Zo cristal 4 MG eCW1 ([facility]) Ondansetron 4 MG Oral Tablet [Zofran] Zofran 4 MG Zofran 4 M G 06/23/2020 12:00:00 AM EDT 1.0 {tablet} active Zo cristal 4 MG eCW1 ([facility]) No Active Medications 12/23/2019 12:00:00 AM EDT completed MEDENT ([facility], [facility]) Amoxicillin 875 MG / Clavulanate 125 MG Oral Tablet Am oxicillin/Clavulanate Potassium 12/23/2019 12:00:00 AM EDT ORAL active MEDENT ([facility], [facility]) Insurance Providers Payer name Policy type / Coverage type Policy ID Covered constitution party ID Covered constitution party's relationship to conley Policy Conley Plan Information [facility] [id number] FA2 [id number] [employer] [id number] FA2 [id number] [employer] [id number] FA2 [id number] [facility] [id number] FA2 [id number] [facility] O [id number] S [id number] [employer] [id number] FA [id number] [facility] [place] [employer] (HMO) [id number] Family Dependent [id number] [facility] [place] [employer] [id number] Family Depende nt [id number] [employer] [id number] FA2 [id number] [facility] [id number] FA2 [id number] [employer] [id number] FA2 [id number] [facility] [facility] [employer] (HMO) Family Dependent Problems, Conditions, and Diagnoses Code Display Name Description Problem Type Effective Dates Data Source(s) O99.213 Obesity complicating , third tr imester Obesity complicating in third trimester Problem 09/22/2020 12:00:00 AM EST eCW1 ([facility]) O99.213 [id number] Obesity during third trimester, antepartu m Problem 09/05/2020 12:00:00 AM EST eCW1 ([facility]) E66.01 Morbid obesity Morbid (severe) obesity due to excess c alories Problem 08/22/2020 12:00:00 AM EST eCW1 ([facility]) O99.213 Obesity complicating , third tr imester Obesity complicating in third trimester Problem 07/21/2020 12:00:00 AM EST eCW1 ([facility]) E66.9 [id number] Obesity (BMI 35.0-39.9 without comorbidit y) Problem 06/23/2020 12:00:00 AM EDT eCW1 ([facility]) O99.212 [id number] Obesity complicating in second trimester Problem 06/22/2020 12:00:00 AM EDT eCW1 ([facility]) O99.211 Obesity complicating , first tr imester Obesity complicating in first trimester Problem 03/03/2020 12:00:00 AM EDT eCW1 ([facility]) Z34.80 care Supervision of other normal P roblem 02/29/2020 12:00:00 AM EDT eCW1 ([facility]) Surgeries/Procedures Procedure Description Date Indications Data Source(s) INFLUENZA VIRUS VACC SPLIT PRSRV FREE 3 YRS/> IM 08/05 12:00:00 AM EST eCW1 ([facility]) Immunization: Boostrix 0.5mL IM (TDAP) 07/21/2020 12:0 0:00 AM EST eCW1 ([facility]) Results ID Date Data Source Glucose Challenge Test 1 Hour 07/12/2020 07:32:38 AM EDT eCW 1 ([facility]) Name Value Range Interpretation Code Description Data Jennifer rce(s) Supporting Document(s) 76 GLUCOSE CHALLENGE TEST 1 HOUR eCW1 ([facility]) ID Date Data Source Type and Screen (D Rh Antibody Screen) 07/12/2020 07:32:16 A M EDT eCW1 ([facility]) Name Value Range Interpretation Code Description Data Jennifer rce(s) Supporting Document(s) O POSITIVE BLOOD TYPE eCW1 ([facility]) NEGATIVE AB SCREEN (INDIRECT COOMB S)VIS eCW1 ([facility]) ID Date Data Source CBC - Complete Blood Count 07/12/2020 07:32:10 AM EDT eCW1 ( [facility]) Name Value Range Interpretation Code Description Data Jennifer rce(s) Supporting Document(s) 4.27 RED BLOOD COUNT eCW1 ([facility]) 9.9 WHITE BLOOD COUNT eCW1 ([facility]) 39.5 HEMATOCRIT eCW1 ([facility]) 29.3 MEAN CORPUSCULAR HEMOGLOBIN eC W1 ([facility]) 92.5 MEAN CORPUSCULAR VOLUME eCW1 ( [facility]) 12.5 HEMOGLOBIN eCW1 ([facility]) 31.6 MEAN CORPUSCULAR HGB CONC eCW1 ([facility]) 12.6 RED CELL DISTRIBUTION WIDTH eC W1 ([facility]) 291 PLATELET COUNT, AUTOMATED eCW1 ([facility]) ID Date Data Source WWBC OBS FOLLOW UP OR REPEAT 07/10/2020 03:05:29 AM EDT eCW1 ([facility]) Name Value Range Interpretation Code Description Data Jennifer rce(s) Supporting Document(s) WWBC OBS FOLLOW UP OR REPEAT e CW1 ([facility]) ID Date Data Source HBSAG 04/01/2020 02:20:06 AM EDT eCW1 ([facility]) Name Value Range Interpretation Code Description Data Jennifer rce(s) Supporting Document(s) NEGATIVE eCW1 ([facility]) ID Date Data Source HEPATITIS C ANTIBODY INDEX 04/01/2020 02:19:59 AM EDT eCW1 ( [facility]) Name Value Range Interpretation Code Description Data Jennifer rce(s) Supporting Document(s) 0.1 eCW1 ([facility]) ID Date Data Source RUBELLA IMMUNE STATUS IgG 04/01/2020 02:19:52 AM EDT eCW1 ([facility]) Name Value Range Interpretation Code Description Data Jennifer rce(s) Supporting Document(s) IMMUNE eCW1 ([facility]) ID Date Data Source SYPHILIS ANTIBODY (RPR SCREEN) 04/01/2020 02:19:45 AM EDT eC W1 ([facility]) Name Value Range Interpretation Code Description Data Jennifer rce(s) Supporting Document(s) NONREACTIVE eCW1 ([facility]) ID Date Data Source [id number] 04/01/2020 02:19:38 AM EDT eCW1 ([facility]) Name Value Range Interpretation Code Description Data Jennifer rce(s) Supporting Document(s) eCW1 ([facility]) ID Date Data Source URINE CULTURE 03/31/2020 12:08:25 PM EDT eCW1 ([facility]) Name Value Range Interpretation Code Description Data Jennifer rce(s) Supporting Document(s) eCW1 ([facility]) ID Date Data Source Type and Screen Prenatal1 03/31/2020 09:31:52 AM EDT eCW1 ([facility]) Name Value Range Interpretation Code Description Data Jennifer rce(s) Supporting Document(s) NEGATIVE eCW1 ([facility]) ID Date Data Source CHLAMYDIA & GC DNA AMPLIFICAT 03/31/2020 09:31:39 AM EDT eCW 1 ([facility]) Name Value Range Interpretation Code Description Data Jennifer rce(s) Supporting Document(s) Chlamydia trachomatis rRNA [Presence] in Unspecified specimen by Probe and target amplification method NEGATIVE eCW1 ([facility]) ID Date Data Source [id number] 03/30/2020 05:41:12 AM EDT eCW1 ([facility]) Name Value Range Interpretation Code Description Data Jennifer rce(s) Supporting Document(s) Hemoglobin A1c/Hemoglobin.total in Blood 5.2 eCW1 ([facility]) Procedure Vital Signs ID Date Data Source UNK Name Value Range Interpretation Code Description Data Source(s) Diastolic blood pressure 64 mm[Hg] 64 mm[Hg] eCW1 ([facility]) Systolic blood pressure 116 mm[Hg] 116 mm[Hg] e CW1 ([facility]) Body mass index (BMI) [Ratio] 40.497 kg/m2 40.4 97 kg/m2 W1 ([facility]) Body height 62.75 [in_i] 62.75 [in_i] W1 ([facility]) Body weight 102.87 kg 102.87 kg eCW1 ([facility]) Body weight 226.8 [lb_av] 226.8 [lb_av] eCW1 ([facility]) Systolic blood pressure 118 mm[Hg] 118 mm[Hg] e CW1 ([facility]) Body mass index (BMI) [Ratio] 40.35 kg/m2 40.35 kg/m2 eCW1 ([facility]) Body height 62.75 [in_i] 62.75 [in_i] eCW1 ([facility]) Body weight 226 [lb_av] 226 [lb_av] eCW1 ([facility]) Diastolic blood pressure 58 mm[Hg] 58 mm[Hg] eCW1 ([facility]) Diastolic blood pressure 62 mm[Hg] 62 mm[Hg] eCW1 ([facility]) Systolic blood pressure 120 mm[Hg] 120 mm[Hg] e CW1 ([facility]) Body mass index (BMI) [Ratio] 40.211 kg/m2 40.2 11 kg/m2 eCW1 ([facility]) Body height 62.75 [in_i] 62.75 [in_i] eCW1 ([facility]) Body weight 102.15 kg 102.15 kg eCW1 ([facility]) Body weight 225.2 [lb_av] 225.2 [lb_av] eCW1 ([facility]) Diastolic blood pressure 70 mm[Hg] 70 mm[Hg] eCW1 ([facility]) Systolic blood pressure 110 mm[Hg] 110 mm[Hg] e CW1 ([facility]) Body mass index (BMI) [Ratio] 38.3 kg/m2 38.3 k g/m2 eCW1 ([facility]) Body height 62.75 [in_i] 62.75 [in_i] eCW1 ([facility]) Body weight 97.3 kg 97.3 kg eCW1 ([facility]) Body weight 214.5 [lb_av] 214.5 [lb_av] eCW1 ([facility]) Diastolic blood pressure 58 mm[Hg] 58 mm[Hg] eCW1 ([facility]) Systolic blood pressure 112 mm[Hg] 112 mm[Hg] e CW1 ([facility]) Body mass index (BMI) [Ratio] 39.961 kg/m2 39.9 61 kg/m2 eCW1 ([facility]) Body height 62.75 [in_i] 62.75 [in_i] eCW1 ([facility]) Body weight 101.51 kg 101.51 kg eCW1 ([facility]) Body weight 223.8 [lb_av] 223.8 [lb_av] eCW1 ([facility]) Body height 62.75 [in_i] 62.75 [in_i] eCW1 ([facility]) Body weight 219 [lb_av] 219 [lb_av] eCW1 ([facility]) Diastolic blood pressure 72 mm[Hg] 72 mm[Hg] eCW1 ([facility]) Systolic blood pressure 122 mm[Hg] 122 mm[Hg] e CW1 ([facility]) Body mass index (BMI) [Ratio] 39.104 kg/m2 39.1 04 kg/m2 eCW1 ([facility]) Diastolic blood pressure 68 mm[Hg] 68 mm[Hg] eCW1 ([facility]) Systolic blood pressure 124 mm[Hg] 124 mm[Hg] e CW1 ([facility]) Body mass index (BMI) [Ratio] 39.64 kg/m2 39.64 kg/m2 eCW1 ([facility]) Body height 62.75 [in_i] 62.75 [in_i] eCW1 ([facility]) Body weight 222 [lb_av] 222 [lb_av] eCW1 ([facility]) Diastolic blood pressure 74 mm[Hg] 74 mm[Hg] eCW1 ([facility]) Systolic blood pressure 126 mm[Hg] 126 mm[Hg] e CW1 ([facility]) Body mass index (BMI) [Ratio] 41.068 kg/m2 41.0 68 kg/m2 eCW1 ([facility]) Body height 62.75 [in_i] 62.75 [in_i] eCW1 ([facility]) Body weight 230 [lb_av] 230 [lb_av] eCW1 ([facility]) Body mass index (BMI) [Ratio] 40.2 kg/m2 40.2 k g/m2 MEDENT ([facility]) Body height 62 [in_i] 62 [in_i] MEDENT ([facility]) 5'2" Body weight 220.00 [lb_av] 220.00 [lb_av] MEDEN T ([facility], [facility]) Body temperature 98.9 [degF] 98.9 [degF] MEDENT ([facility], [facility]) Oxygen saturation in Arterial blood by Pulse oximetry 98 % 98 % MEDENT ([facility], [facility]) Respiratory rate 12 /min 12 /min MEDENT ( [facility]) Heart rate 67 /min 67 /min MEDENT ([facility], [facility]) Diastolic blood pressure 68 mm[Hg] 68 mm[Hg] MEDENT ([facility], [facility]) Systolic blood pressure 110 mm[Hg] 110 mm[Hg] M EDENT ([facility], [facility]) Body mass index (BMI) [Ratio] 40.2 kg/m2 40.2 k g/m2 MEDENT ([facility]) Body height 62 [in_i] 62 [in_i] MEDENT ([facility]) 5'2" Body weight 220.00 [lb_av] 220.00 [lb_av] MEDEN T ([facility], [facility]) Body temperature 98.0 [degF] 98.0 [degF] MEDENT ([facility], [facility]) Oxygen saturation in Arterial blood by Pulse oximetry 97 % 97 % MEDENT ([facility]) Heart rate 55 /min 55 /min MEDENT ([facility]) Diastolic blood pressure 67 mm[Hg] 67 mm[Hg] [facility]) Systolic blood pressure 106 mm[Hg] 106 mm[Hg] M EDENT ([facility], [facility]) Patient Treatment Plan of Care Planned Activity Planned Date Details Description Data Source (s) Ondansetron 4 MG Oral Tablet [Zofran] 06/23/2020 12:00:00 AM EDT eCW1 ([facility])
--- OUTSIDE RECORDS SUMMARY | 2020-10-04 07:30 | CCD ---
Author Author [facility] Organization [facility] Address Unknown Phone Unavailable Care Team Providers Care Global Mobility Specialist Name Role Phone Margot Ramsay Unavailable PROBLEMS Type Condition ICD9-CM Code [id number] Code Onset Dates Condition S tatus SNOMED Code Notes Problem Obesity, morbid, BMI 40.0-49.9 E66.01 Active 2 69529339 Problem Obesity during third trimester, antepartum O99.213 Active 804683422 Problem Obesity complicating in third trimester O99.21 3 Active Problem Encounter for control pills maintenance Z30. 41 Active 386929061 Problem Environmental allergies Z91.09 Active 56806013 7 Problem Asthma J45.909 Active 234599592 Problem Morbid (severe) obesity due to excess calories E66 .01 Active 273163431 ALLERGIES Allergen (clinical drug ingredient) Drug/Non Drug Allergy do cumented on EMR Reaction Allergy Type Onset Date Status Sulfa (for allergy use only) Hives Drug Allergy Active ENCOUNTERS from 1998 to 2020-09-28 Encounter Location Date Provider Diagnosis [facility] [address] [place] [id number] [id number] Sep, 2020 Margot Ramsay Obesity complicat ing in third trimester O99.213 and 38 weeks gestation of Z3A.38 IMMUNIZATIONS Vaccine Route Administration Date Status HPV9 [...] Unknown Language: Question Answer Notes Languages spoken: Urdu Presybeterian: Question Answer Notes Presybeterian 33 None REASON FOR REFERRAL No Information VITAL SIGNS Weight 226.8 lbs Sep, Weight-kg 102.87 kg Sep, Height 62.75 in Sep, BMI 40.497 kg/m2 Sep, Blood pressure systolic 116 mm Hg Sep, Blood pressure diastolic 64 mm Hg Sep, MEDICATIONS Medication SIG (Take, Route, Frequency, Duration) Notes Start Da te End Date Status Albuterol Sulfate HFA 108 (90 Base) MCG/ACT 1-2 puffs Inhalation qid prn for sob/wheeze for 30 day(s) Not-Wil ing Vitamins 28-0.8 MG 1 tablet Orally Once a day Active Albuterol Sulfate (2.5 MG/3ML) 0.083% 3 ml Inhalation qid prn fo r sob/wheeze Not-Taking Zofran 4 MG 1 tablet Orally every 6 hours as needed for nausea Jun, Active PROCEDURES No Information RESULTS No Results REASON FOR VISIT 2WK PN MEDICAL (GENERAL) HISTORY Type Description Date Medical History Asthma Hospitalization History Asthma As infant Hospitalization History childbirth Goals Section No Information Health Concerns No Information MEDICAL EQUIPMENT No Information MENTAL STATUS No Information FUNCTIONAL STATUS No Information ASSESSMENTS Encounter Date Diagnosis Assessment Notes Treatment Notes Treatm ent Clinical Notes Sep, Obesity complicating pregnan cy in third trimester (ICD-10 - O99.213) Sep, 38 weeks gestation of (ICD-10 - Z3A.38 ) PLAN OF TREATMENT Next Appt Details 1 Week Reason:return ob Provider Name:Sanaz Vernon, 2020-10-03 0 2:00:00 PM, [address] [place], [phone], Follow Up:1 Weekreturn ob Insurance Providers Payer Name Payer Address Payer Phone Insured Name Patient Relati onship to Insured Coverage Start Date Coverage End Date [facility] [address] [facility] [id number] [phone] [place] [id number]
--- OUTSIDE RECORDS SUMMARY | 2020-10-04 07:30 | CCD ---
Author Author [facility] Organization [facility] Address Unknown Phone Unavailable Care Team Providers Care Violin Tutor Name Role Phone Debora Trujillo Unavailable PROBLEMS Type Condition ICD9-CM Code QQP91-EC Code Onset Dates Condition S tatus SNOMED Code Notes Problem Environmental allergies Z91.09 Active 83298675 7 Problem Asthma J45.909 Active 302164883 Problem Obesity, morbid, BMI 40.0-49.9 E66.01 Active 2 90288451 Problem Encounter for control pills maintenance Z30. 41 Active 219527392 ALLERGIES Allergen (clinical drug ingredient) Drug/Non Drug Allergy do cumented on EMR Reaction Allergy Type Onset Date Status Sulfa (for allergy use only) Hives Drug Allergy Active ENCOUNTERS from 1998 to 2020-08-17 Encounter Location Date Provider Diagnosis [facility] [address] [place] [phone] Jul, Debora Trujillo Encounter for superv ision of normal in multigravida in third trimester Z34.83 ; 31 weeks gestation of Z3A.31 and Encounter for immunization Z23 IMMUNIZATIONS Vaccine Route Administration Date Status HPV9 [...] Unknown Language: Question Answer Notes Languages spoken: Japanese Buddhist: Question Answer Notes Buddhist 33 None REASON FOR REFERRAL No Information VITAL SIGNS Weight 214.5 lbs Jul, Weight-kg 97.3 kg Jul, Height 62.75 in Jul, BMI 38.3 kg/m2 Jul, Blood pressure systolic 110 mm Hg Jul, Blood pressure diastolic 70 mm Hg Jul, MEDICATIONS Medication SIG (Take, [...] sob/wheeze for 30 day(s) Not-Wil ing PROCEDURES Procedure Date Ordered Result Body Site Immunization: Fluzone (6mo & older) 0.5mL IM (Influenza) 2020-07 N/A RESULTS No Results REASON FOR VISIT 2 WK PN MEDICAL (GENERAL) HISTORY Type Description Date Medical History Asthma Hospitalization History Asthma As Hospitalization History childbirth Goals Section No Information Health Concerns No Information MEDICAL EQUIPMENT No Information MENTAL STATUS No Information FUNCTIONAL STATUS No Information ASSESSMENTS Encounter Date Diagnosis Assessment Notes Treatment Notes Treatm ent Clinical Notes Jul, Encounter for supervision of normal in multigravida in third trimester (ICD-10 - Z34.83) Jul, 31 weeks gestation of (ICD-10 - Z3A.31 ) Jul, Encounter for immunization (ICD-10 - Z23) PLAN OF TREATMENT Next Appt Details 2 Weeks Reason: Provider Name:Cecily Enrique, 2020-08 01:20:00 PM, [address] [place], [address], Follow Up:2 WeeksJ Insurance Providers Payer Name Payer Address Payer Phone Insured Name Patient Relati onship to Insured Coverage Start Date Coverage End Date [facility] [address] [facility] [phone] [place] [id number]
--- OUTSIDE RECORDS SUMMARY | 2020-10-04 07:30 | CCD ---
Author Author [facility] Organization [facility] Address Unknown Phone Unavailable Care Team Providers Care Animal Behaviourist Name Role Phone Cecily Enrique Unavailable PROBLEMS Type Condition ICD9-CM Code MQA44-NO Code Onset Dates Condition S tatus SNOMED Code Notes Problem Asthma J45.909 Active 312902392 Problem Morbid (severe) obesity due to excess calories E66 .01 Active 222291429 Problem Obesity, morbid, BMI 40.0-49.9 E66.01 Active 2 50348461 Problem Encounter for control pills maintenance Z30. 41 Active 986505863 Problem Environmental allergies Z91.09 Active 41993362 7 ALLERGIES Allergen (clinical drug ingredient) Drug/Non Drug Allergy do cumented on EMR Reaction Allergy Type Onset Date Status Sulfa (for allergy use only) Hives Drug Allergy Active ENCOUNTERS from 1998 to 2020-08-24 Encounter Location Date Provider Diagnosis [facility] [address] [place] [phone] Aug, Cecily Enrique Obesity complicating in third trimester O99.213 ; Morbid (severe) obesity due to excess calories E66.01 and 34 weeks gestation of Z3A.34 IMMUNIZATIONS Vaccine Route Administration Date Status HPV9 [...] Unknown Language: Question Answer Notes Languages spoken: Montserratian Cheondoism: Question Answer Notes Cheondoism 33 None REASON FOR REFERRAL No Information VITAL SIGNS Weight 225.2 lbs Aug, Weight-kg 102.15 kg Aug, Height 62.75 in Aug, BMI 40.211 kg/m2 Aug, Blood pressure systolic 120 mm Hg Aug, Blood pressure diastolic 62 mm Hg Aug, MEDICATIONS Medication SIG (Take, [...] Notes Treatm ent Clinical Notes Aug, Obesity complicating pregnan cy in third trimester (ICD-10 - O99.213) Aug, Morbid (severe) obesity due to excess calories ( ICD-10 - E66.01) Aug, 34 weeks gestation of (ICD-10 - Z3A.34 ) PLAN OF TREATMENT Next Appt Details 2 Weeks Reason:PN Provider Name:Grant Coreas 09:20:00 AM, [address] [place], [address], Follow Up:2 WeeksPN Insurance Providers Payer Name Payer Address Payer Phone Insured Name Patient Relati onship to Insured Coverage Start Date Coverage End Date [facility] [address] [facility] [id number] [place] [id number]
[2020-10-04] MEDS ORDERED: PRENTAB9 PO (07:32)
[2020-10-04] MEDS ORDERED: LR 1,000 ML IV SCH (08:11)
[2020-10-04] MEDS ORDERED: LACTATED RINGER'S 1000 ML IV STA (08:11)
[2020-10-04] MEDS ORDERED: miSOPROStol 50MCG 1/2 TABLET PV ONE (08:15)
[2020-10-04 08:41] LABS: HEMATOCRIT 35.3 % (36.0-47.0); HEMOGLOBIN 11.6 g/dl (12.0-15.5); MEAN CORPUSCULAR HEMOGLOBIN 29.1 pg (27.0-33.0); MEAN CORPUSCULAR HGB CONC 32.9 g/dl (32.0-36.5); MEAN CORPUSCULAR VOLUME 88.5 fl (80.0-96.0); PLATELET COUNT, AUTOMATED 302 10^3/uL (150-450); RED BLOOD COUNT 3.99 10^6/uL (4.00-5.40); WHITE BLOOD COUNT 10.8 10^3/uL (4.0-10.0)
[2020-10-04] MEDS ORDERED: miSOPROStol 25MCG 1/4 TABLET PO SCH ×2 (09:00→13:00)
[2020-10-04] MEDS ORDERED: PROMETHAZINE INJ 25 MG/ML VIAL (J2550) IV PRN (10:30)
[2020-10-04] MEDS ORDERED: BUTORPHANOL 2 MG/ML INJ (J0595) IV PRN (10:30)
--- NOTE | 2020-10-04 10:37 | HPEPDOC ---
Obstetrical History & Physical General Date of Admission Oct 04, 2020 at 07:16 History of Present Illness Nessa is a 20yo with SIUP at 40w3d by 9wk u/s presenting for scheduled elective IOL. No vaginal bleeding, no LOF. Good movement. No regular/painful ctx. No fevers/chills/nausea/vomiting/CP/SOB/cough. Chief Complaint: Induction of labor Information Provided By: Patient Care Care: Good Care Dating Final EDC: Oct 01, 2020 Final EDC by: 1st trimester (US) Antepartum Course Diagnos(e)s Obesity (starting BMI 41) with normal glucose testing, mild-intermittent asthma (prn albuterol) Past Medical History Past Obstetrical History : Past Obstetrical History: Multigravida (12/2017 at 41wk F 7lb6oz delivered by Dr. 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 Past Medical History Medical History Morbid obesity (starting BMI 41), mild-intermittent asthma (prn albuterol) Surgical History: Denies/None Family History Significant Family History: No pertinent family hx Social History Family situation: Spouse/partner home Psychosocial History: No pertinent psych hx * Smoker: non-smoker Alcohol: Denies Drugs: denies Imunizations Tdap status: current Influenza Status: current Allergies Coded Allergies: Sulfa (Sulfonamide Antibiotics) (Verified Allergy, Unknown, 06/12/19) hives Medications Scheduled No.137/Iron/Folic Acd ( Vitamin Tablet) 1 Each Tablet, 1 TAB PO DAILY Physical Examination Physical Examination GENERAL: Alert and oriented times three. ABDOMEN: Gravid and non-tender to touch. FETUS: Is vertex (VTX) by sterile vaginal examination (SVE) EXTREMITIES: No edema of BLE Vital Signs/I&O Vital Signs Date Time Temp Pulse Resp B/P (MAP) Pulse Ox O2 Delivery O2 Flow Rate FiO2 10/04/20 07:59 98.4 66 20 107/58 (74) Laboratory Data 24H LABS Laboratory Tests 2 10/04/20 07:25: Serology Scanned Report Hepatitis B Testing 10/04/20 08:20: Nucleated Red Blood Cells % (auto) 0.0 CBC/BMP Laboratory Tests 10/04/20 08:20 Pertinent Laboratoy Data Blood Type: O+ RBC Antibody Screen: Negative HIV: Negative Hepatitis B: Negative Hepatitis C: Negative Rapid Plasma Reagin: Nonreactive Rubella: Immune Chlamydia/Gonorrhea: Negative Group B Streptococcus: Negative Glucose Tolerance Test: 76 Anatomy Ultrasound Ultrasound Date: Jul 06, 2020 Placenta Location: Anterior Normal Anatomy: Yes Placenta Previa: No Steroid Therapy Steroid Therapy: No Vaginal Examination Dilation: 1cm Effacement: other (0%) Station: -2 Cervical Consistency: Medium Cervical Position: Posterior Presentation: Cephalic presentation Assessment Heart Rate (FHR): 130 Variability: Moderate Accelerations: Positive Decelerations: None Tocometer Contractions: No Assessment/Plan Assessment Nessa is a 20yo with SIUP at 40w3d by 9wk u/s admitted for scheduled elective IOL. Vitals wnl, benign exam. Cat I FHRT. SCE 1/thick/-2, cephalic. 50mcg PV cytotec placed with cervical garcia bulb 40cc, well tolerated. PNC/PMhx significant for: Obesity (starting BMI 41) with normal glucose testing, mild-intermittent asthma (prn albuterol) Plan Admit and orient. Cdl Instructor and consent. Diet: regular for lunch then clear liquids Group B Streptococcus (GBS) negative Labs and intravenous (IV) per unit protocol. Counseled on cytotec, cervical garcia bulb, Pitocin and induction of labor (IOL). Lactated Ringers (LR): Bolus 800 mL, then at 125 mL/hr in anticipation of epidu ral Anticipate normal spontaneous delivery () Candidate for epidural in active labor, stadol/phenergan in latent labor Safe to proceed Cecily Enrique MD Oct 04, 2020 10:37
--- NOTE | 2020-10-04 18:19 | IPNPDOC ---
Text Note Date of Service The patient was seen on 10/04/20. NOTE Intrapartum Note Nessa is uncomfortable and desires epidural- she is receiving IVF bolus in anticipation of epidural. Coping ok with ctx. Nuñez cervical bulb came out within the last hour. Vitals wnl, afebrile SCE: 6/80/-2, bulging bag Cat I FHRT overall with bl 120, +accels, -decels mod paul When IVF bolus is done, anesthesia will be notified for epidural Will continue to closely monitor Plan to re-check in 2-4hr or earlier as indicated Safe to proceed Cecily Enrique MD VS,Jeniffer, I+O VS, Jeniffer I+O Laboratory Tests 10/04/20 08:20 Vital Signs Date Time Temp Pulse Resp B/P (MAP) Pulse Ox O2 Delivery O2 Flow Rate FiO2 10/04/20 17:14 18 Room Air 10/04/20 16:03 97.3 10/04/20 15:47 59 119/72 (88) Cecily Enrique MD Oct 04, 2020 18:19
[2020-10-04] MEDS ORDERED: FENTANYL 2MCG/ML ROPIVACAINE 0.2% IN 0.9% NACL 100ML IVBAG As Ordered ONE (18:29)
[2020-10-04] MEDS ORDERED: EPIDURAL COMMENT XX SCH (19:15)
[2020-10-04] MEDS ORDERED: NALOXONE INJ 0.4MG/1ML VIAL (J2310 PER 1MG) IV PRN (19:15)
[2020-10-04] MEDS ORDERED: diphenhydrAMINE 50MG/ML VIAL (J1200) IV PRN (19:15)
[2020-10-04] MEDS ORDERED: ePHEDrine SULFATE 25 MG/5 ML(5MG/ML) SYRINGE IV PRN (19:15)
[2020-10-04] MEDS ORDERED: REFRIGERATOR IV KEYS XX PRN (19:15)
[2020-10-04] MEDS ORDERED: ONDANSETRON 4MG/2ML VIAL IV PRN (19:15)
[2020-10-04] MEDS ORDERED: LACTATED RINGER'S 1000 ML IV PRN (19:15)
[2020-10-04] MEDS ORDERED: FENTANYL/ROPIVACAINE/NACL BAG 100 ML EPIDURAL SCH (19:15)
[2020-10-04] MEDS ORDERED: EPIDURAL/PCA KEYS XX PRN (19:15)
--- NOTE | 2020-10-04 22:05 | IPNPDOC ---
Text Note Date of Service The patient was seen on 10/04/20. NOTE Intrapartum Note Pt doing well, comfortable with epidural but feels intermittent pelvic/rectal pressure. Vitals wnl, afebrile Cat I FHRT with mod paul, +accels, -decels [place]: ctx q2-3min SCE: 980/-2, bladder garcia bulb was beneath head, so pushed up and over to allow for descent Plan to recheck in 1-2hr or earlier as indicated Closely monitor Safe to proceed Cecily Enrique MD VS,Jeniffer, I+O VSJeniffer I+O Laboratory Tests 10/04/20 08:20 Vital Signs Date Time Temp Pulse Resp B/P (MAP) Pulse Ox O2 Delivery O2 Flow Rate FiO2 10/04/20 21:48 99.1 64 20 114/74 (87) 10/04/20 17:14 Room Air Cecily Enrique MD Oct 04, 2020 22:05
[2020-10-04] MEDS ORDERED: OXYTOCIN DRIP 30 UNITS in IV 1 EA IV SCH (22:13)
[2020-10-04] MEDS ORDERED: ACETAMINOPHEN TAB 650MG DOSE (2X325MG) PO PRN (23:30)
[2020-10-04] MEDS ORDERED: BENZOCAINE 20% HEMORRHOIDAL OINTMENT 28GM TUBE TOP PRN (23:30)
[2020-10-04] MEDS ORDERED: RHOGAM 300 MCG (1500 IU) INJ (J2790) IM SCH (23:30)
[2020-10-04] MEDS ORDERED: DOCUSATE SODIUM 100MG CAPSULE PO PRN (23:30)
[2020-10-04] MEDS ORDERED: IBUPROFEN 600MG TAB PO PRN (23:30)
[2020-10-04] MEDS ORDERED: MEASLES,MUMPS,RUBELLA VACCINE INJ (MMR-II) (90707) SC SCH (23:30)
--- NOTE | 2020-10-04 23:30 | DNPDOC ---
[facility] Delivery Note Delivery Note DATE OF DELIVERY: 04 Oct 2020 PREDELIVERY DIAGNOSIS: 40w3d elective IOL POST DELIVERY DIAGNOSIS: Delivered. PROCEDURE: Spontaneous vaginal delivery WATER MECHANIC: Dr. Cecily Enrique ANESTHESIA: epidural ESTIMATED BLOOD LOSS: 300 mL. FINDINGS: 7 pound 8 ounce (3390g) female , Score 8/9 DELIVERY SUMMARY: Nessa is a 20yo [id number] s/p uncomplicated at 2253 on 10/04/20 after undergoing elective IOL at 40w3d. She was 1cm on presentation and had garcia cervical bulb placed with 50mcg PV cytotec. She received 1 more dose of PO cytotec and then progressed all on her own, at 6cm she received an epidural, and she had SROM, clear at 8cm. At C/C/0, she had the unavoidable urge to push. With excellent maternal effort, head delivered OA, restituted JULIANA. Right anterior shoulder easily delivered followed by posterior shoulder and corpus. placed on maternal abdomen, spontaneous cry noted and was vigorous with apgars 8/9, nose and mouth suctioned with bulb suction. After approximately 2 minutes, cord was clamped x2 and cut by FOB. Cord blood obtained for MBT O pos. With traction on the cord and uterine massage, placenta delivered spontaneously and intact with 3 vessel centrally inserted cord. More uterine massage performed, IV pitocin given per protocol, fundus then firm at u-2cm with hemostasis noted. Inspection of perineum and vagina revealed small superficial right labial maikol repaired with 3-0 vicryl with a single figure of 8 suture with complete reapproximation and hemostasis noted. Mom and were doing well when I left the room. MD Iva Galindo Katrina D MD Oct 04, 2020 23:30
[2020-10-05 01:00] VITALS: BP 133/61
[2020-10-05 05:59] VITALS: BP 117/56
[2020-10-05] MEDS: PRENATAL VITAMINS CHEWABLE TABLET PO SCH (08:23)
[2020-10-05] MEDS: IBUPROFEN 800 MG TAB PO PRN ×2 (08:24→16:25)
--- NOTE | 2020-10-05 08:33 | IPNPDOC ---
Progress Note Date of Service: Oct 05, 2020 Day#: 1 Progress Note PPD 1 SUBJECT: Nessa is a 20yo [id number] s/p uncomplicated at 2253 on 10/04/20 after undergoing elective IOL at 40w3d, doing well day # 1. She has been ambulating, voiding spontaneously without issue and tolerating regular diet. Bottle feeding without issue. Reports lochia is like a normal period. No n/v/f/c/CP/SOB. OBJECTIVE: VITAL SIGNS: Within normal limits, afebrile. Alert and oriented times three. Abdomen: Fundus firm at U-2. Soft, NTTP. Extremities: no pain with palpation of calves ASSESSMENT: Nessa is a 20yo [id number] s/p uncomplicated at 2253 on 10/04/20 after undergoing elective IOL at 40w3d, doing well day # 1. Vitals within normal limits, afebrile, hemodynamically stable with no evidence of infection. PLAN: 1. Routine care 2. Tylenol and Motrin for pain 3. Encourage breast feeding and ambulation. 4. Desires depoprovera for contraception, will give 1st dose prior to d/c 5. Regular diet 6. Baby is under bili light, possible d/c home tomorrow Cecily Enrique MD VS, I&O, 24H, [facility] Vital Signs/I&O Vital Signs Date Time Temp Pulse Resp B/P (MAP) Pulse Ox O2 Delivery O2 Flow Rate FiO2 10/05/20 05:59 98.0 69 18 117/56 (76) 10/05/20 01:00 97 Room Air I&O- Last 24 Hours up to 6 AM 10/05/20 06:00 Intake Total 2800 ml Output Total 300 ml Balance 2500 ml Laboratory Data 24H LABS Laboratory Tests 2 10/04/20 08:20: Nucleated Red Blood Cells % (auto) 0.0, Syphilis Serology NONREACTIVE CBC/BMP Laboratory Tests 10/04/20 08:20 Cecily Enrique MD Oct 05, 2020 08:33
[2020-10-05] MEDS: ACETAMINOPHEN 500 MG TAB PO PRN ×2 (09:26→14:59)
[2020-10-05 18:00] VITALS: BP 140/67
[2020-10-06] MEDS: ACETAMINOPHEN 500 MG TAB PO PRN (00:21)
[2020-10-06 05:51] VITALS: BP 123/67
[2020-10-06] MEDS ORDERED: medroxyPROGESTERone ACET IM SUSP 150 MG/ML VIAL (J1050) IM ONE (09:00)
[2020-10-06] MEDS: IBUPROFEN 800 MG TAB PO PRN (10:01)
[2020-10-06] MEDS: PRENATAL VITAMINS CHEWABLE TABLET PO SCH (10:01)
== END 2020-10-06 12:35 | disposition home or self-care (01) | DRG 560 ==
LOC: M LDI 07:16 → M OBS 10-05 00:54
PROVIDERS: ADMIT Obstetrics & Gynecology; ATTEND Obstetrics & Gynecology
PROC: 10E0XZZ Delivery of Products of Conception, External Approach (ICD-10-PCS; principal; 2020-10-04)
PROC: 3E0P7GC Introduction of Other Therapeutic Substance into Female Reproductive, Via Natural or Artificial Opening (ICD-10-PCS; 2020-10-04)
PROC: 0HQ9XZZ Repair Perineum Skin, External Approach (ICD-10-PCS; 2020-10-04)
DX: O99.214 Obesity complicating childbirth (principal); E66.9 Obesity, unspecified; Z3A.40 40 weeks gestation of pregnancy; Z37.0 Single live birth; O48.0 Post-term pregnancy; O70.0 First degree perineal laceration during delivery

== ENCOUNTER → 2020-12-09 | Outpatient (REF) | payer OTHER ==
[~2020-12-09] MED LIST changes: +PRENTAB9 PO
[2020-12-09 14:15] LABS: FREE T4 0.83 NG/DL (0.76-1.46); THYROID STIMULATING HORMONE 0.62 uIU/ML (0.358-3.740); TOTAL 25(OH) VITAMIN D 17.1 NG/ML (30.0-100.0)
== END ==
LOC: M PLALAB 11:58
PROVIDERS: ATTEND Obstetrics & Gynecology
DX: O90.6 Postpartum mood disturbance (principal)

== ENCOUNTER 2023-10-06 17:41 | Emergency (ER) | payer BC, OTHER ==
[~2023-10-06] VITALS: Ht 157.5 cm; Wt 119.7 kg
[2023-10-06] MEDS ORDERED: predniSONE 20 MG TAB PO ONE (23:00)
[2023-10-06] MEDS ORDERED: AUGMENTIN 875 MG TAB PO ONE (23:00)
[2023-10-06] MEDS ORDERED: AMOX875T2 PO (23:51)
[2023-10-06] MEDS ORDERED: PRED20TA PO (23:51)
[2023-10-06] MEDS ORDERED: CLAR10CA3 PO (23:51)
[2023-10-07 00:20] VITALS: BP 136/82; TEMP 97.8; O2SAT 99
== END 2023-10-07 00:21 | disposition home or self-care (01) ==
LOC: M ED 17:41
DX: H66.91 Otitis media, unspecified, right ear (principal); J45.909 Unspecified asthma, uncomplicated; Z88.2 Allergy status to sulfonamides; Z79.52 Long term (current) use of systemic steroids; Z79.2 Long term (current) use of antibiotics; Z79.899 Other long term (current) drug therapy
CPT/HCPCS: 87486; 87581; 87633; 87798; 99283; J7512

== ENCOUNTER → 2023-12-10 | Outpatient (CLI) | payer BC ==
[~2023-12-10] MED LIST changes: +AMOX875T2 PO; +CLAR10CA3 PO; +PRED20TA PO
[2023-12-10 13:52] LABS: HEMATOCRIT 39.8 % (36.0-47.0); HEMOGLOBIN 12.9 g/dl (12.0-15.5); MEAN CORPUSCULAR HEMOGLOBIN 29.2 pg (27.0-33.0); MEAN CORPUSCULAR HGB CONC 32.4 g/dl (32.0-36.5); PLATELET COUNT, AUTOMATED 363 10^3/uL (150-450); RED BLOOD COUNT 4.42 10^6/uL (4.00-5.40); WHITE BLOOD COUNT 10.1 10^3/uL (4.0-10.0)
[2023-12-10 14:51] LABS: HIV 1&2 SCREEN NEGATIVE (NEGATIVE)
[2023-12-10 14:59] LABS: HEPATITIS C VIRUS ABY INDEX < 0.02 INDEX (<0.8)
[2023-12-10 15:21] LABS: GC DNA AMPLIFICATION NEGATIVE (NEGATIVE)
== END ==
LOC: M PLALAB 10:36
PROVIDERS: ATTEND Advanced Practice Midwife
DX: Z34.81 Encounter for supervision of other normal pregnancy, first trimester (principal)

== ENCOUNTER → 2024-03-03 | Outpatient (CLI) | payer BC | LOC: M WHC 09:52 | PROVIDERS: ATTEND Advanced Practice Midwife | DX: Z34.82 Encounter for supervision of other normal pregnancy, second trimester (principal); Z3A.21 21 weeks gestation of pregnancy ==

== ENCOUNTER → 2024-04-10 | Outpatient (CLI) | payer BC ==
[2024-04-10 14:21] LABS: HEMATOCRIT 36.2 % (36.0-47.0); HEMOGLOBIN 11.9 g/dl (12.0-15.5); MEAN CORPUSCULAR HEMOGLOBIN 28.7 pg (27.0-33.0); MEAN CORPUSCULAR HGB CONC 32.9 g/dl (32.0-36.5); MEAN CORPUSCULAR VOLUME 87.2 fl (80.0-96.0); PLATELET COUNT, AUTOMATED 313 10^3/uL (150-450); RED BLOOD COUNT 4.15 10^6/uL (4.00-5.40); WHITE BLOOD COUNT 11.7 10^3/uL (4.0-10.0)
[2024-04-10 14:49] LABS: GLUCOSE CHALLENGE TEST 1 HOUR 102 MG/DL (LESS THAN 140)
[2024-04-10 15:18] LABS: HIV 1&2 SCREEN NEGATIVE (NEGATIVE)
[2024-04-10 15:26] LABS: HEPATITIS C VIRUS ABY INDEX < 0.02 INDEX (<0.8)
[2024-04-10 15:31] LABS: GC DNA AMPLIFICATION NEGATIVE (NEGATIVE)
== END ==
LOC: M PLALAB 09:09
PROVIDERS: ATTEND Advanced Practice Midwife
DX: Z34.82 Encounter for supervision of other normal pregnancy, second trimester (principal); Z3A.00 Weeks of gestation of pregnancy not specified

== ENCOUNTER → 2024-04-23 | Outpatient (CLI) | payer BC | LOC: M WHC 08:50 | PROVIDERS: ATTEND Advanced Practice Midwife | DX: Z34.83 Encounter for supervision of other normal pregnancy, third trimester (principal); Z3A.29 29 weeks gestation of pregnancy ==

== ENCOUNTER → 2024-06-02 | Outpatient (CLI) | payer BC | LOC: M RAD 07:26 | PROVIDERS: ATTEND Nurse Practitioner Women's Health | DX: O09.293 Supervision of pregnancy with other poor reproductive or obstetric history, third trimester (principal); Z3A.34 34 weeks gestation of pregnancy ==

== ENCOUNTER → 2024-06-16 | Outpatient (REF) | payer BC | LOC: M SFHCWAGY 17:03 | PROVIDERS: ATTEND Obstetrics & Gynecology | DX: Z36.89 Encounter for other specified antenatal screening (principal); Z3A.36 36 weeks gestation of pregnancy ==

== ENCOUNTER 2024-07-08 07:43 | Inpatient (IN) | payer BC ==
[2024-07-08] VITALS (29 sets, daily range): BP systolic 98–139; BP diastolic 48–77; O2SAT 97–98
[~2024-07-08] VITALS: Ht 157.5 cm; Wt 133.4 kg
[2024-07-08] MEDS ORDERED: HOME MED LIST COMPLETE! XX SCH (08:30)
[2024-07-08 08:49] LABS: HEMATOCRIT 34.4 % (36.0-47.0); HEMOGLOBIN 11.2 g/dl (12.0-15.5); MEAN CORPUSCULAR HEMOGLOBIN 27.3 pg (27.0-33.0); MEAN CORPUSCULAR HGB CONC 32.6 g/dl (32.0-36.5); MEAN CORPUSCULAR VOLUME 83.9 fl (80.0-96.0); PLATELET COUNT, AUTOMATED 318 10^3/uL (150-450)
[2024-07-08] MEDS ORDERED: CARBOPROST TROMETHAMINE 250 MCG/ML AMP IM PRN (09:25)
[2024-07-08] MEDS ORDERED: TRANEXAMIC ACID INJection 1,000 MG in NS 100 ML IV PRN (09:25)
[2024-07-08] MEDS ORDERED: OXYTOCIN INJ 10UNITS/ML 1ML VIAL IM PRN (09:25)
[2024-07-08] MEDS ORDERED: OXYTOCIN DRIP 30 UNITS in IV 1 EA IV PRN (09:25)
[2024-07-08] MEDS ORDERED: METHYLERGONOVINE MALEATE 0.2MG/ML 1ML VIAL IM PRN (09:25)
[2024-07-08] MEDS ORDERED: LIDOCAINE 1% MDV 20ML VIAL INFIL PRN (09:25)
[2024-07-08 09:54] LABS: HEPATITIS C VIRUS ABY INDEX 0.02 INDEX (<0.8)
[2024-07-08] MEDS: miSOPROStol 50MCG 1/2 TABLET PO SCH (09:57)
[2024-07-08] MEDS: LR 1,000 ML IV SCH (18:46)
[2024-07-08] MEDS: OXYTOCIN DRIP 30 UNITS in IV 1 EA IV SCH (18:46)
[2024-07-08] MEDS ORDERED: EPIDURAL/PCA KEYS XX PRN (23:15)
[2024-07-08] MEDS ORDERED: ONDANSETRON 4MG 2ML VIAL IV PRN (23:15)
[2024-07-08] MEDS ORDERED: LR 500 ML IV PRN (23:15)
[2024-07-08] MEDS ORDERED: diphenhydrAMINE 50MG/ML VIAL IV PRN (23:15)
[2024-07-08] MEDS ORDERED: NALOXONE INJ 0.4MG/1ML VIAL IV PRN (23:15)
[2024-07-08] MEDS: FENTANYL/ROPIVACAINE/NACL BAG 100 ML EPIDURAL SCH (23:26)
[2024-07-09] VITALS (23 sets, daily range): BP systolic 87–136; BP diastolic 48–80; TEMP 98; O2SAT 97–98
[2024-07-09] MEDS: ePHEDrine SULFATE 25 MG/5 ML(5MG/ML) SYRINGE IVP PRN (05:15)
[2024-07-09 10:31] LABS: CORD GAS ABE A -7.8; CORD GAS HCO3 A 21.8 MMOL/L; CORD GAS O2 SAT A 49.5 %; CORD GAS PCO2 A 61.4 mmHg; CORD GAS PH A 7.169 UNITS; CORD GAS PO2 A 23.8 mmHg; CORD GAS SBC A 17.2 MMOL/L; CORD GAS TCO2 A 23.7 MMOL/L
[2024-07-09 10:33] LABS: CORD GAS ABE V -6.5; CORD GAS HCO3 V 18.5 MMOL/L; CORD GAS O2 SAT V 76.9 %; CORD GAS PCO2 V 35.9 mmHg; CORD GAS PH V 7.33 UNITS; CORD GAS PO2 V 31.7 mmHg; CORD GAS SBC V 18.7 MMOL/L; CORD GAS TCO2 V 19.6 MMOL/L
[2024-07-09] MEDS: OXYTOCIN DRIP 30 UNITS in IV 1 EA IV PRN (10:44)
[2024-07-09] MEDS ORDERED: ANUSOL HC CREAM 30GM TOP PRN (10:45)
[2024-07-09] MEDS ORDERED: DOCUSATE SODIUM 100MG CAPSULE PO PRN (10:45)
[2024-07-09] MEDS ORDERED: RHOGAM 300MCG (1500IU) INJ IM SCH (10:45)
[2024-07-09] MEDS ORDERED: DIBUCAINE 1% OINTMENT 30GM TOP PRN (10:45)
[2024-07-09] MEDS: IBUPROFEN 800 MG TAB PO PRN (12:33)
[2024-07-09] MEDS: ACETAMINOPHEN 500 MG TAB PO PRN (17:01)
[2024-07-10 06:00] VITALS: BP 122/67; O2SAT 99
[2024-07-10] MEDS: PRENATAL VITAMINS CHEWABLE TABLET PO SCH (10:01)
[2024-07-11] MEDS ORDERED: MEASLES,MUMPS,RUBELLA VACCINE INJ (MMR-II) SC.IMMUN ONE (09:00)
== END 2024-07-10 12:05 | disposition home or self-care (01) | DRG 560 ==
LOC: M LDI 07:43 → M OBS 07-09 12:11
PROVIDERS: ADMIT Advanced Practice Midwife; ATTEND Obstetrics & Gynecology
PROC: 3E033VJ Introduction of Other Hormone into Peripheral Vein, Percutaneous Approach (ICD-10-PCS; 2024-07-08)
PROC: 10E0XZZ Delivery of Products of Conception, External Approach (ICD-10-PCS; principal; 2024-07-09)
PROC: 10907ZC Drainage of Amniotic Fluid, Therapeutic from Products of Conception, Via Natural or Artificial Opening (ICD-10-PCS; 2024-07-09)
DX: O69.81X0 Labor and delivery complicated by cord around neck, without compression, not applicable or unspecified (principal); Z37.0 Single live birth; Z3A.40 40 weeks gestation of pregnancy